=== PATIENT | male | born 1935 | race Hispanic/Latino ===

== ENCOUNTER 2020-06-28 14:01 | Outpatient (CLI) | payer MEDICARE | END 2020-06-28 14:02 | disposition home or self-care (01) | LOC: SPVIMAG 14:01 | DX: Z01.818 Encounter for other preprocedural examination (principal) ==

== ENCOUNTER 2020-10-03 09:57 | Outpatient (CLI) | payer MEDICARE ==
--- NOTE | 2020-10-03 17:48 | Vascular Lab Report ---
ULTRASOUND AORTA with arterial duplex and spectral waveforms INDICATION / CLINICAL INFORMATION: ESSENTIAL HYPERTENSION,ABDOMINAL PAIN I10/R10.84. TECHNIQUE: B-mode and Doppler imaging was used to evaluate the aorta. COMPARISON: None available. FINDINGS: PROXIMAL ABDOMINAL AORTA (cm): 1.9 , peak systolic velocity 99 cm/s MID ABDOMINAL AORTA (cm): 1.9 PSV 116 cm/s DISTAL ABDOMINAL AORTA (cm): 2.1 PSV 103 cm/s Proximal SMA: PSV 302 Mid SMA: PSV 263 Distal SMA: PSV 66 ADDITIONAL FINDINGS: None. IMPRESSION: 1. No sonographic evidence for AAA. 2. Patent SMA. FOLLOW-UP RECOMMENDATION: Aortic diameter less than 3.0 cm = Optional follow-up ultrasound in 3 years. The Society for Vascular [employer] practice guidelines on the care of patients with an abdominal aortic aneurysm, or similar guidelines. SVS guidelines on AAA can be found online: [email or web address] Signer Name: J Carlos Koenig MD Signed: 10/03/2020 5:44 PM Workstation Name: [email or web address]
== END 2020-10-03 09:58 | disposition home or self-care (01) ==
LOC: VAS 09:57
PROVIDERS: ATTEND Surgery Vascular Surgery
DX: R10.84 Generalized abdominal pain (principal); I10 Essential (primary) hypertension
CPT/HCPCS: 93979